=== PATIENT | female | born 1990 | race American Indian/Alaskan Native ===

== ENCOUNTER 2025-02-02 14:31 | Emergency (ER) | payer OTHER, MEDICAID, SELFPAY ==
[2025-02-02 14:32] VITALS: BMI 37.3
[2025-02-02 14:47] VITALS: BP 101/60; PULSE 84; RESP 18; TEMP 36.8; O2SAT 98
--- NOTE | 2025-02-02 14:53 | XR_ITS ---
Examination: Pelvic ultrasound, transabdominal, complete Technique: Transabdominal ultrasound of the pelvis performed using grayscale imaging Date and time of exam: February 02, 2025 1801 hours Comparison November 04, 2009 INDICATIONS: Irregular heavy vaginal bleeding 2 weeks FINDINGS: Uterus 8.2 cm endometrial sign 0.9 cm No uterine mass or intrauterine gestation Right ovary 2.6 cm arterial flow Left ovary 4.4 cm arterial flow 20 x 19 x 23 mm cyst IMPRESSION: Left ovarian simple cyst, 2.8 x 1.9 x 2.3 cm
--- NOTE | 2025-02-02 14:54 | PD.EDRME ---
Rapid Medical Screening Exam RME Arrival date/time: 02/02/25 14:31 35-year-old female presents emergency department today for complaint of vaginal bleeding ongoing since the first patient for generalized weakness was seen in the clinic today was told that her hemoglobin is 8 and was referred to the ER for further evaluation Chief Complaint: Weakness Vital signs: Vital Signs Temperature 98.3 F 02/02/25 14:47 Pulse Rate 84 02/02/25 14:47 Respiratory Rate 18 02/02/25 14:47 Blood Pressure 101/60 02/02/25 14:47 Pulse Oximetry (%) 98 02/02/25 14:47 Oxygen Delivery Method Room Air 02/02/25 14:47
[2025-02-02 16:00] LABS: Basophils % (Auto) 0 % (0-2.5); Eosinophils # (Auto) 0.1 Thou/mm3 (0.0-0.5); Eosinophils % (Auto) 2 % (0-10); Hematocrit 25.3 % (36.0-46.0); Immature Granulocytes % (Auto) 0 % (0-0); Immature Granulocytes Auto 0.03 Thou/mm3 (0.00-0.00); Lymphocytes # (Auto) 1.9 Thou/mm3 (1.0-4.8); Lymphocytes % (Auto) 26 % (10-50); Mean Corpuscular HGB Conc 32.4 g/dl (31.0-37.0); Mean Corpuscular Hemoglobin 28.5 pg (25.0-35.0); Mean Corpuscular Volume 88 fL (80-100); Monocytes # (Auto) 0.7 Thou/mm3 (0.0-0.8); Monocytes % (Auto) 9 % (0-12); Neutrophils # (Auto) 4.4 Thou/mm3 (1.8-7.7); Neutrophils % (Auto) 62 % (37-80); Nucleated Red Blood Cell % 0 /100 WBC (0); Platelet Count 429 Thou/mm3 (140-440); RDW Standard Deviation 41.1 fL (36.4-46.3); Red Blood Count 2.88 Miln/mm3 (4.00-5.20); White Blood Count 7.1 Thou/mm3 (3.6-11.0)
[2025-02-02 16:06] LABS: HCG,Qualitative Serum Negative; Hemoglobin 8.2 g/dL (12.0-16.0)
[2025-02-02 16:17] LABS: Alanine Aminotransferase 14 U/L (10-49); Albumin, Serum 4.1 gm/dL (3.5-5.0); Albumin/Globulin Ratio 1.9 (1.2-2.2); Alkaline Phosphatase 86 U/L (46-116); Anion Gap 7 (7-16); Aspartate Amino Transferase 17 U/L (0-34); BUN/Creatinine Ratio 14 Ratio (12-20); Bilirubin,Total 0.5 mg/dL (0.3-1.2); Blood Urea Nitrogen 10 mg/dL (9-23); Calcium 9.1 mg/dL (8.3-10.6); Calcium (Corrected) 9.1 mg/dL (8.5-10.1); Carbon Dioxide 26.4 mMol/L (20.0-31.0); Chloride 107 mMol/L (98-107); Creatinine (Component) 0.7 mg/dL (0.6-1.3); Estimated Creatinine Clearance 105.3 mL/min (>60); Globulin 2.2 gm/dL (2.3-3.5); Glucose 106 mg/dL (74-106); Osmolality,Calculated 278 (275-295); Potassium 3.7 mMol/L (3.4-5.1); Sodium 140 mMol/L (136-145); Total Protein 6.3 gm/dL (5.7-8.2); eGFR > 60 See Note
[2025-02-02 16:20] LABS: Ferritin 6 ng/mL (7.3-270.7); INR 0.9 (0.9-1.3); Iron 14 mcg/dL (50-170); Partial Thromboplastin Time 24.2 Seconds (22.0-36.0); Percent Iron Saturation 3 % (20-55); Prothrombin Time 10.1 Seconds (9.0-12.2); Total Iron Binding Capacity 406 mcg/dL (250-425); Unsaturated Iron Binding 392 (225-295)
[2025-02-02 18:15] VITALS: BP 130/63; PULSE 86; RESP 16; TEMP 37; O2SAT 98
--- NOTE | 2025-02-02 19:01 | EDNOTE_ITS ---
ED Weakness RME/HPI General Chief complaint: Weakness Stated complaint: SENT BY CLINIC FOR HGB 8.0; PT WEAK Time Seen by Provider: 02/02/25 15:14 Source: patient Arrival date/time: 02/02/25 14:31 Mode of arrival: ambulatory Limitations: no limitations RME / HPI RME / HPI Narrative: 02/02/25 14:31 35-year-old female presents emergency department today for complaint of vaginal bleeding ongoing since the first patient for generalized weakness was seen in the clinic today was told that her hemoglobin is 8 and was referred to the ER for further evaluation Related Data Previous Rx's ?Medication ?Instructions ?Recorded hydrocodone 5 mg-acetaminophen 325 1 tab PO Q8H #10 ta bs 07/09/21 mg tablet tamsulosin 0.4 mg capsule (Flomax) 0.4 mg PO QDAY #10 caps 07/09/21 ferrous sulfate, dried 159 mg (45 159 mg PO QDAY #30 t abs 02/02/25 mg iron) tablet,extended release (iron ER) medroxyprogesterone 10 mg tablet 10 mg PO QDAY #20 tab s 02/02/25 (Provera) Allergies Allergy/AdvReac Type Severity Reaction Status Date / Time No Known Allergies Allergy Unknown Verified 02/02/25 14:33 Review of Systems Review of Systems Systems Reviewed: All systems reviewed, normal except as documented ED Exam General Limitations: Present no limitations Course Quality Measures none Orders Category Date Time Status Consult to Obstetrics Stat Cons 02/02/25 19:00 Ordered US pelvic complete Stat Exams 02/02/25 14:53 Completed CBC Stat Lab 02/02/25 15:16 Completed Comprehensive Metabolic Panel Stat Lab 02/02/25 15:16 Completed Ferritin Stat Lab 02/02/25 15:16 Completed HCG,Qualitative Serum Stat Lab 02/02/25 15:16 Completed Iron Panel Stat Lab 02/02/25 15:16 Completed Partial Thromboplastin Time Stat Lab 02/02/25 15:16 Completed Prothrombin Time with INR Stat Lab 02/02/25 15:16 Completed Type and Screen Stat Lab 02/02/25 15:16 Completed Piper/Tazo Inj [Zosyn Inj] 4.5 gm Med 02/02/25 17:36 Discontinued Sodium Chloride 0.9% (Pop) [NS 0.9% mini bag] 100 ml IV X1 Vital Signs Vital signs: Vital Signs Temperature 98.3 F 06/17/25 14:47 Pulse Rate 84 02/02/25 14:47 Respiratory Rate 18 02/02/25 14:47 Blood Pressure 101/60 02/02/25 14:47 Pulse Oximetry (%) 98 02/02/25 14:47 Oxygen Delivery Method Room Air 02/02/25 14:47 Weakness MDM Narrative MDM Narrative:: 35-year-old female who is here today with generalized weakness. She has had heavy menstrual cycles for the past several months. Her last menstrual sighted on the first of this month and is ongoing until now. She is using several pads a day and has difficulty quantifying how any pads she is using. She denies any syncopal episodes or falls. No fevers or chills. She has no significant abdominal pain although she endorses minimal pelvic cramping. Patient is nontoxic-appearing in no visible signs stress. Vital signs are stable. Hemoglobin is 8. Iron is 14. [facility] was consulted, spoke with Dr. Chacon regarding outpatient follow-up. [facility] will see them as an outpatient. We will start the patient on Provera 10 mg once daily. This discussed the patient. She is agreeable to plan. She will be discharged at this time. Patient data External records reviewed:: [facility] previous records Clinical information provided by:: patient Social determinants that could affect healthcare access:: none Patient has the following chronic illnesses:: Menorrhagia How is presenting disease/condition affected by chronic disease/condition?: exacerbated by Evaluation data The following diagnostics were reviewed and interpreted by me:: lab results (Significant anemia with a hemoglobin 8 and iron 14) and radiology exam(s) (No endometriosis noted, there is ovarian cyst present.) Lab and/or radiology exams considered but not ordered:: n/a Interpretation Summary: n/a Medications / Prescriptions Medications or Prescriptions considered but not ordered:: n/a Medication administrations:: Medication Administration History Discontinued Medications Piperacillin Sod/Tazobactam (Sod 4.5 gm/ Sodium Chloride) 100 mls @ 200 mls/hr IV X1 ONE Stop: 02/02/25 18:05 Last Admin: 02/02/25 18:39 Dose: Not Given Documented By: SF Non-Admin Reason: Cancelled by Provider No medications provided. Above order was placed in by air and canceled. Consultations Consultation(s) initiated? (list below): Yes Diagnosis Weakness Differential Diagnosis: anemia and dehydration Most likely diagnosis given after review of the tests above:: Iron deficiency anemia Admission Indicated Admission indicated?: not indicated Admission Request Was there a request for admission?: No Disposition Plan Disposition Plan: Discharge Discharge Attestation Discharge Attestation: The patient and all family members were given an opportunity to ask questions and understood the discharge instructions. Discharge instructions specifically effects, indications for sooner follow up or return to the emergency department, and the expected course of current diagnosis. Patient condition: Stable Discharge Plan Plan Patient Disposition: HOME (Self Care) Patient condition on transfer: Stable Prescriptions/Referrals Prescriptions/Med Rec: New medroxyprogesterone [Provera] 10 mg tablet 10 mg PO QDAY Qty: 20 0RF iron 159 mg (45 mg iron) tablet extended release 159 mg PO QDAY Qty: 30 0RF No Action hydrocodone-acetaminophen 5-325 mg tablet 1 tab PO Q8H MDD 3 tabs Qty: 10 0RF tamsulosin [Flomax] 0.4 mg capsule 0.4 mg PO QDAY Qty: 10 0RF Referrals: No Primary/Family,Physician [Primary Care Provider] - In 1 week Problem List Clinical Impression: Anemia, Menorrhagia Patient/Caregiver Discharge Instructions Education Materials: Anemia, ED Heavy Menstrual Bleeding Additional Instructions: Maintain oral hydration. Use the provided medications as prescribed. Please return anytime for any worsening or emergent changes. Otherwise follow-up with Dr. Chacon with [facility] at: [address] [place] [address] . Print Language: [place] Stand Alone Forms: [facility] Award Info., Patient Portal Info Letter
[2025-02-02 19:30] VITALS: BP 105/72; PULSE 76; RESP 16; TEMP 36.8; O2SAT 98
== END 2025-02-02 19:33 | disposition home or self-care (01) ==
PROVIDERS: Nurse Practitioner Primary Care; Emergency Provider Family Medicine
DX: D64.9 Anemia, unspecified (principal); N92.0 Excessive and frequent menstruation with regular cycle; N83.292 Other ovarian cyst, left side
CPT/HCPCS: 36415; 76856; 80053; 82728; 83540; 83550; 84703; 85025; 85610; 85730; 86850; 86900; 86901; 99284